=== PATIENT | male | born 2000 | race Caucasian/White ===

== ENCOUNTER → 2022-12-24 08:12 | Outpatient (CLI) | payer OTHER, SELFPAY ==
--- NOTE | 2022-12-24 08:15 | DI.RAD.S_ITS ---
PROCEDURE: [place] SHOULDER INJECTION MR/CT LT INDICATIONS: Recurrent dislocation and pain in L shoulder COMPARISON: [facility], MR, MR SHOULDER LT W CON, 12/24/2022, 8:48. TECHNIQUE: The indications, alternatives, benefits, risks, and complications of the procedure were explained to the patient. Written informed consent was obtained and placed in the chart. The shoulder was examined fluoroscopically and a site for needle placement chosen for entry into the glenohumeral joint from an anterior approach. The skin was prepped and draped in a sterile fashion, and 1% lidocaine infiltrated from skin down to joint capsule. A spinal needle was inserted into the glenohumeral joint, and a small amount of iodinated contrast media injected to confirm intra-articular placement of the needle tip. This was followed by approximately 12 mL dilute solution of a gadolinium containing MR contrast agent. The needle was removed and a dressing was applied. The patient was given postprocedural instructions and sent to the MR suite for MR imaging. FINDINGS: A single fluoroscopic spot image demonstrates intra-articular location of injected iodinated contrast. IMPRESSION: Successful fluoroscopically guided administration of dilute Gadolinium solution into the shoulder joint for MR arthrogram. Dictated by: Christopher Lewis M.D. on 12/24/2022 at 11:52 Approved by: Christopher Lewis M.D. on 12/24/2022 at 11:52
--- NOTE | 2022-12-24 08:15 | DI.MRI.S_ITS ---
PROCEDURE: MR SHOULDER LT W CON INDICATIONS: Recurrent dislocation and pain in L shoulder TECHNIQUE: After the administration of 12 mL of dilute intra-articular Gadolinium contrast, oblique coronal T1 and T2 spin echo with fat saturation, oblique sagittal T1 spin echo with and without fat saturation, oblique sagittal T2 fast spin echo with fat saturation, axial T1 spin echo with fat saturation through the shoulder. COMPARISON: [facility] ([place]), CR, XR SHOULDER LT MIN 2V, 12/03/2022, 10:16. Formerly [facility], , [place] SHOULDER INJECTION MR/CT LT, 12/24/2022, 8:31. FINDINGS: Image quality: Excellent. Rotator cuff: The supraspinatus, infraspinatus, and subscapularis tendons appear intact throughout. No rotator cuff muscle atrophy on sagittal images. Bones and bursae: There is a small shallow Hill-Sachs lesion at the posterosuperior humeral head measuring approximately 10 x 9 x 2 mm. Mild adjacent osseous edema is present. No acute glenoid fracture or significant loss of glenoid bone stock is seen. No focal glenohumeral cartilage loss. No significant acromioclavicular degenerative changes are seen. There is trace noncommunicating subacromial/subdeltoid bursal fluid. No intra-articular filling defect is seen within the glenohumeral joint space. Capsule and soft tissues: There is circumferential nondisplaced tearing of the glenoid labrum. The proximal biceps long head tendon is intact. The glenohumeral ligaments are intact. IMPRESSION: 1. Small shallow Hill-Sachs lesion at the posterosuperior humeral head measuring 10 x 9 x 2 mm with mild osseous edema, consistent with prior anterior instability. 2. Circumferential nondisplaced tearing of the glenoid labrum. No glenoid fracture or loss of glenoid bone stock is seen. Approved by: Julio Rouse M.D. on 12/24/2022 at 13:13
== END ==
PROVIDERS: PCP Pediatrics; Referring Provider Pediatrics; Visit Provider Pediatrics
DX: M24.412 Recurrent dislocation, left shoulder (principal); S43.492A Other sprain of left shoulder joint, initial encounter
CPT/HCPCS: 23350; 73222